=== PATIENT | male | born 1975 | race Caucasian/White ===

== ENCOUNTER → 2021-02-16 | Outpatient (CLI) | payer OTHER ==
[2021-02-19 01:06] LABS: QUANTIFERON, TB GOLD PLUS Negative (Negative)
== END | disposition home or self-care (01) ==
LOC: LABPV 07:08
PROVIDERS: ATTEND Internal Medicine
DX: Z02.6 Encounter for examination for insurance purposes (principal); Z02.89 Encounter for other administrative examinations
CPT/HCPCS: 86480; 86592; 87491; 87591